=== PATIENT | male | born 1965 | race Caucasian/White ===

== ENCOUNTER → 2016-09-14 | Outpatient (CLI) | payer OTHER | LOC: FIMAGING 08:08 | PROVIDERS: ATTEND Surgery | DX: K44.9 Diaphragmatic hernia without obstruction or gangrene (principal); K21.9 Gastro-esophageal reflux disease without esophagitis; R05 Cough ==

== ENCOUNTER 2016-10-04 05:40 | Inpatient (IN) | payer OTHER ==
[2016-10-04] MEDS ORDERED: CLINDAMYCIN 600 MG/DEXTROSE 50 ML IV ONE (05:46)
[2016-10-04] MEDS ORDERED: LIDOCAINE 1% 2 ML INJ ONE (05:53)
[2016-10-04] MEDS ORDERED: LR 1,000 ML IV ONE (06:27)
[2016-10-04] MEDS ORDERED: LIDOCAINE 1% 2 ML INJ ID PRN (06:27)
--- NOTE | 2016-10-04 06:47 | PDGENHP ---
History and Physical - Chief Complaint GERD - History of Present Illness GERD, cough, hiatal hernia on imaging. History Information - Allergies/Home Medication List Allergies/Adverse Reactions: Penicillins Allergy (Unknown, Verified 10/01/16 13:53) Home Medications: Citalopram [CeleXA] 20 mg PO DAILY 10/01/16 [Last Taken 10/03/16 08:00] Disulfiram [Antabuse 250 MG (*)] 250 mg PO DAILY 10/01/16 [Last Taken 10/03/16 21:00] Multivitamins [Multivitamin (*)] 1 each PO DAILY 10/01/16 [Last Taken 10/01/16] Omeprazole [Prilosec 20 mg] 20 mg PO DAILY 10/01/16 [Last Taken 10/03/16 08:00] I have personally reviewed and updated: family history, medical history - Social History Smoking Status: Current every day smoker Review of Systems ROS: 10pt was reviewed & negative except for what was stated in HPI & below Physical Exam Temp Pulse Resp BP Pulse Ox 36.4 C 58 L 16 137/81 H 94 10/04/16 06:18 10/04/16 06:18 10/04/16 06:18 10/04/16 06:18 10/04/16 06:18 Constitutional: no apparent distress Eyes: PERRL Ears, Nose, Mouth, Throat: moist mucous membranes Cardiovascular: regular rate and rhythym Respiratory: no respiratory distress Gastrointestinal: normoactive bowel sounds, soft, non-tender abdomen Assessment & Plan Assessment: 51c longstanding GERD Plan: to OR for paraesophageal hernia repair, Joya RBA discussed
[2016-10-04] MEDS ORDERED: MIDAZOLAM 2 MG/2 ML VIAL IVP ONE (06:52)
--- NOTE | 2016-10-04 06:52 | PDANEPAE ---
ANE History of Present Illness presents for Joya fundoplication ANE Past Medical History - Cardiovascular History Hx Hypertension: No Hx Arrhythmias: No Hx Chest Pain: No Hx Coronary Artery / Peripheral Vascular Disease: No Hx CHF / Valvular Disease: No Hx Palpitations: No - Pulmonary History Hx COPD: No Hx Asthma/Reactive Airway Disease: No Hx Recent Upper Respiratory Infection: No Hx Oxygen in Use at Home: No - Neurologic History Hx Cerebrovascular Accident: No Hx Seizures: No Hx Dementia: No - Endocrine History Hx Diabetes: No - Renal History Hx Renal Disorders: No - Liver History Hx Hepatic Disorders: No - Neurological & Psychiatric Hx Hx Neurological and Psychiatric Disorders: No - Cancer History Hx Cancer: No - Congenital Disorder History Hx Congenital Disorders: No - GI History Hx Gastrointestinal Disorders: No - Chronic Pain History Chronic Pain: No ANE Review of Systems - Exercise capacity Exercise capacity: >=4 METS METS (RN): 6 METS ANE Patient History - Allergies Allergies/Adverse Reactions: Penicillins Allergy (Unknown, Verified 10/01/16 13:53) - Home Medications Home Medications: Citalopram [CeleXA] 20 mg PO DAILY 10/01/16 [Last Taken 10/03/16 08:00] Disulfiram [Antabuse 250 MG (*)] 250 mg PO DAILY 10/01/16 [Last Taken 10/03/16 21:00] Multivitamins [Multivitamin (*)] 1 each PO DAILY 10/01/16 [Last Taken 10/01/16] Omeprazole [Prilosec 20 mg] 20 mg PO DAILY 10/01/16 [Last Taken 10/03/16 08:00] - NPO status NPO Since - Liquids (Date): 10/03/16 NPO Since - Liquids (Time): 21:30 NPO Since - Solids (Date): 10/03/16 NPO Since - Solids (Time): 20:00 - Anes Hx Anes Hx: no prior problems - Smoking Hx Smoking Status: Current every day smoker ANE Labs/Vital Signs - Vital Signs Blood Pressure: 137/81 Heart Rate: 58 Respiratory Rate: 16 O2 Sat (%): 94 Height: 177.8 cm Weight: 102.058 kg ANE Physical Exam - Airway Neck exam: FROM Mallampati Score: Class 2 Mouth exam: normal dental/mouth exam - Pulmonary Pulmonary: no respiratory distress - Cardiovascular Cardiovascular: regular rate and rhythym - ASA Status ASA Status: III ANE Anesthesia Plan Anesthesia Plan: general endotracheal anesthesia
[2016-10-04] MEDS ORDERED: fentaNYL 100 MCG/2 ML INJ ONE ×4 (06:58→10:12)
[2016-10-04] MEDS ORDERED: PROPOFOL 200 MG/20 ML VIAL ONE ×3 (06:58→09:03)
[2016-10-04] MEDS ORDERED: BUPIVACAINE/EPI 0.25% 30 ML SDV ONE (07:08)
[2016-10-04] MEDS ORDERED: BUPIVACAINE/EPI 0.5% 30 ML SDV ONE (07:08)
[2016-10-04] MEDS ORDERED: hydrALAZINE 20 MG/ML VIAL ONE (09:04)
[2016-10-04] MEDS ORDERED: KETOROLAC 30 MG/1 ML SDV ONE (09:04)
[2016-10-04] MEDS ORDERED: SUGAMMADEX SODIUM 200 MG/2 ML VIAL IVP ONE (09:04)
[2016-10-04] MEDS ORDERED: METOCLOPRAMIDE 10 MG/2 ML VIAL IVP PRN ×2 (10:07→10:14)
[2016-10-04] MEDS ORDERED: ACETAMINOPHEN 500 MG TAB PO PRN (10:07)
[2016-10-04] MEDS ORDERED: PROMETHAZINE HCL 25 MG/ML INJ IVP PRN ×2 (10:07→10:14)
[2016-10-04] MEDS ORDERED: LABETALOL HCL 50 MG/10 ML SYR IVP PRN (10:07)
[2016-10-04] MEDS ORDERED: NALOXONE HCL 0.4 MG/ML INJ IVP PRN (10:07)
[2016-10-04] MEDS ORDERED: ONDANSETRON 4 MG/2 ML VIAL IVP PRN ×2 (10:07→10:14)
[2016-10-04] MEDS ORDERED: LR 500 ML IV PRN (10:07)
[2016-10-04] MEDS ORDERED: OXYCODONE/APAP 5/325 TAB PO PRN (10:07)
[2016-10-04] MEDS ORDERED: ALBUTEROL 3 ML DEYVIAL IH PRN (10:07)
--- NOTE | 2016-10-04 10:07 | POSTANESTH ---
Post Anesthetic Evaluation Cardiovascular Status: Normal, Stable Respiratory Status: Normal, Stable Level of Consciousness/Mental Status: Can Participate in Eval Pain Control: Adequate, Prn Tx Ordered Nausea/Vomiting Control: Adequate, Prn Tx Ordered Complications Possibly Related to Anesthesia: None Noted
[2016-10-04] MEDS: fentaNYL 100 MCG/2 ML INJ IVP PRN ×2 (10:14→10:31)
--- NOTE | 2016-10-04 10:20 | POSTOPPROG ---
Post Op Note Date of Operation: 10/04/16 Surgeon: Westley Almaguer Mother Repairer: Gurpreet Gold MD Anesthesiologist: Barb Anesthesia: GET(General Endotracheal) Pre-op Diagnosis: Paraesophageal hernia, GERD Post-op Diagnosis: same Procedure: Laparoscopic paraesophageal hernia repair with Joya fundoplication Findings: moderate defect, reparied primarily. 360 wrap of 52Fr Bougie Inf/Abcess present in the surg proc area at time of surgery?: No EBL: Minimal
[2016-10-04] MEDS ORDERED: HYDROmorphONE/DILAUDID 1 MG/ML SYR ONE (10:36)
[2016-10-04] MEDS: HYDROmorphONE/DILAUDID 1 MG/ML SYR IVP PRN ×8 (10:39→22:30)
[2016-10-04] MEDS: D5W 1/2 NS W/ 20 KCl/L 1,000 ML IV SCH (11:33)
[2016-10-04] MEDS: KETOROLAC 15 MG/1 ML SDV IVP SCH ×3 (11:33→22:30)
[2016-10-04] MEDS: CEPACOL LOZENGE PO PRN ×2 (17:30→18:30)
[2016-10-04] MEDS ORDERED: NS 250 ML IV ONE (17:30)
--- NOTE | 2016-10-04 20:29 | GOP ---
[f rep st] OPERATIVE REPORT DATE OF OPERATION: 10/04/2016 SURGEON: Westley Almaguer MD ASSISTANT TO THE CEO: Gurpreet Gold MD. ANESTHESIA: General endotracheal ANESTHESIOLOGIST: Dr. Day PREOPERATIVE DIAGNOSIS: Paraesophageal hernia with gastroesophageal reflux. POSTOPERATIVE DIAGNOSIS: Paraesophageal hernia with gastroesophageal reflux. PROCEDURE PERFORMED: 1. Paraesophageal hernia repair. 2. Joya fundoplication. FINDINGS: Large paraesophageal hernia completely reduced. Hiatus reapproximated, 360 degree wrap performed over 52-Mongolian bougie. SPECIMENS: None. ESTIMATED BLOOD LOSS: 10 cc. DESCRIPTION OF PROCEDURE: The patient was greeted in the preoperative suite. Once again, risks, benefits, and alternatives were discussed. Consent was signed. He was then brought back to the operative suite, placed on the OR table in supine position. After all anesthesia machines were on and functioning , [employer] time-out was performed ending with all in agreement. Antibiotics were given on-call to the operating room. After successful induction of general anesthesia, the patient's abdomen was then widely prepped and draped in typical sterile fashion. I entered the abdomen using the Veress needle via a separate stab incision in the left upper quadrant and achieved pneumoperitoneum to 15 mmHg. I inserted a 12 mm port in the left mid abdomen under direct visualization. Once successfully in the abdomen, I placed 4 additional more ports, three 5 mm, one additional 12 mm, all under direct visualization. I turned my attention 1st towards mobilizing the pars flaccida. I took this mobilization all the way up to the right aimee. Once I identified the right aimee, I identified the hernia sac there and dissected it from the right side. I carried my dissection around circumferentially to the anterior and then left side, cleaning all of the diaphragmatic crura from the hernia sac. The hernia sac was still anchored somewhat anteriorly into the chest and via a combination of Harmonic Scalpel and blunt dissection, I was able to successfully reduce this. Once the sac was successfully reduced, I ensured that both crura were successfully skeletonized after which I performed my paraesophageal hernia repair which was performed with multiple interrupted 0 Ethibond sutures noting excellent reapproximation with minimal tension. I could fit the dissector between the esophagus and the crura itself with minimal effort. After this was done, I turned my attention now toward my fundoplication. I divided the majority of the short gastrics along the greater curvature. After this was done, I brought the fundus through my retrogastric window to fashion my wrap. I then had the anesthesiologist insert the 52- Mongolian bougie which was done without incident. Prior to suturing, a shoe-shine maneuver was performed. I then fashioned my wrap around the 52-Mongolian bougie and using multiple interrupted 0 Ethibond sutures reapproximated the Joya floppily around the esophagus incorporating it into the wrap itself. The bougie was then removed. I ensured that the dissector would pass through the wrap without incident and it would. After this was done, I inspected all surfaces which were noted to be hemostatic. All suture lines were noted to be intact. I then irrigated the patient's upper abdomen with normal saline noting that everything was hemostatic. I then injected local anesthesia into all port sites which were withdrawn under direct visualization. I closed my initial port site with an interrupted 0 Vicryl stitch noting excellent fascial reapproximation. The skin was closed with running Monocryl over which Dermabond was placed. The patient was then extubated in the operative suite and taken to the PACU in satisfactory condition. DRAINS: None. COUNTS: All counts were reported as correct x2. /[id number]/MODL MTDD
[2016-10-05] MEDS: D5W 1/2 NS W/ 20 KCl/L 1,000 ML IV SCH ×3 (01:54→17:52)
[2016-10-05] MEDS: HYDROmorphONE/DILAUDID 1 MG/ML SYR IVP PRN ×9 (01:54→22:35)
[2016-10-05 04:42] LABS: HEMATOCRIT 40.8 % (40.0-51.0); HEMOGLOBIN 13.8 g/dL (13.7-17.5); MEAN CELL HEMOGLOBIN 28.3 pg (27.9-34.1); MEAN CELL HEMOGLOBIN CONCENTR. 33.8 g/dL (32.4-36.7); MEAN CELL VOLUME 83.6 fL (81.5-99.8); RED BLOOD CELL COUNT 4.88 10^6/uL (4.40-6.38); RED CELL DISTRIBUTION WIDTH 12.6 % (11.5-15.2)
[2016-10-05 04:54] LABS: ANION GAP 7 mEq/L (8-16); CALCIUM 8.6 mg/dL (8.5-10.4); CARBON DIOXIDE 21 mEq/l (22-31); CHLORIDE 108 mEq/L (97-110); CREATININE 0.9 mg/dL (0.7-1.3); GLOMERULAR FILTRATION RATE > 60; GLUCOSE 139 mg/dL (70-100); POTASSIUM 4.4 mEq/L (3.5-5.2); SODIUM 136 mEq/L (134-144)
[2016-10-05] MEDS: KETOROLAC 15 MG/1 ML SDV IVP SCH ×4 (05:16→23:43)
--- NOTE | 2016-10-05 09:49 | SOAPPROG ---
SOAP Progress Note Assessment/Plan: Assessment/Plan: POD#1 s/p Lap paraesophageal repair c Joya - Pain has been an issues, starting orals today with PO valium. Will reassess later - KEERTHI: CXR shows persistent air in chest, not recurrent hernia. - HDS - Abd soft, aTTP, incisions cdi. Advance diet to fulls, encouraged PO intake - Dispo: encouraged OOB, working on pain control. Likely home tomorrow 10/05/16 09:46 Subjective: Pain issues, no nausea. Clears going ok Objective: Vital Signs Temp Pulse Resp BP Pulse Ox 36.8 C 78 18 111/70 90 L 10/05/16 08:00 10/05/16 08:00 10/05/16 08:00 10/05/16 08:00 10/05/16 08:00 Laboratory Results 10/05/16 04:20 10/05/16 04:20 10/04/16 10/05/16 10/06/16 05:59 05:59 05:59 Intake Total 3178 Output Total 380 Balance 2798 ICD10 Worksheet Patient Problems: Problems Problem Status Onset GERD (gastroesophageal reflux disease) Acute Paraesophageal hernia Acute - ICD10 Problem Qualifiers (1) GERD (gastroesophageal reflux disease) Qualifiers: Esophagitis presence: without esophagitis Qualified Code(s): K21.9 - Gastro -esophageal reflux disease without esophagitis (2) Paraesophageal hernia
[2016-10-05] MEDS: DISULFIRAM 250 MG TAB PO SCH (10:14)
[2016-10-05] MEDS: DIAZEPAM 5 MG TAB PO PRN ×2 (10:14→19:41)
[2016-10-05] MEDS: CITALOPRAM 20 MG TAB PO SCH (10:21)
[2016-10-05] MEDS: PANTOPRAZOLE SODIUM 40 MG TAB PO SCH (12:38)
[2016-10-06] MEDS: HYDROmorphONE/DILAUDID 1 MG/ML SYR IVP PRN ×5 (03:34→19:43)
[2016-10-06] MEDS: CEPACOL LOZENGE PO PRN (04:13)
[2016-10-06] MEDS: DIAZEPAM 5 MG TAB PO PRN (05:38)
[2016-10-06] MEDS: KETOROLAC 15 MG/1 ML SDV IVP SCH ×3 (05:38→18:53)
[2016-10-06] MEDS: OXYCODONE/APAP 5/325 TAB PO PRN ×3 (12:22→21:28)
--- NOTE | 2016-10-06 14:02 | SOAPPROG ---
SOAP Progress Note Assessment/Plan: Assessment/Plan: 51 Y M s/p lap hiatal hernia repair and paraesophageal hernia repair, POD#2. Advance to dysphagia II diet. Buff cap IVF. Start PO pain meds. OOB. S: +flatus. C/o pain--IV meds work, then wear off. No N/V. O: alert, nad mmm chest clear, no wob rrr abd soft, protuberant, +BS, inc cdi 10/06/16 13:59 Objective: Vital Signs Temp Pulse Resp BP Pulse Ox 36.8 C 77 18 142/86 H 95 10/06/16 11:52 10/06/16 11:52 10/06/16 11:52 10/06/16 11:52 10/06/16 11:52 Laboratory Results 10/05/16 04:20 10/05/16 04:20 10/05/16 10/06/16 10/07/16 05:59 05:59 05:59 Intake Total 2867 1923 Output Total 380 Balance [id number] [id number] ICD10 Worksheet Patient Problems: Problems Problem Status Onset GERD (gastroesophageal reflux disease) Acute Paraesophageal hernia Acute
[2016-10-06] MEDS: DISULFIRAM 250 MG TAB PO SCH (17:48)
[2016-10-06] MEDS: CITALOPRAM 20 MG TAB PO SCH (17:48)
[2016-10-06] MEDS: PANTOPRAZOLE SODIUM 40 MG TAB PO SCH (18:00)
[2016-10-07] MEDS: KETOROLAC 15 MG/1 ML SDV IVP SCH ×2 (00:16→06:06)
[2016-10-07] MEDS: HYDROmorphONE/DILAUDID 1 MG/ML SYR IVP PRN (00:17)
[2016-10-07] MEDS: OXYCODONE/APAP 5/325 TAB PO PRN ×2 (04:40→09:33)
[2016-10-07 07:51] VITALS: BP 101/62; PULSE 87; RESP 18; TEMP 97.7; O2SAT 92
[2016-10-07] MEDS: PANTOPRAZOLE SODIUM 40 MG TAB PO SCH (07:55)
[2016-10-07] MEDS: DISULFIRAM 250 MG TAB PO SCH (07:55)
[2016-10-07] MEDS: CITALOPRAM 20 MG TAB PO SCH (07:55)
[2016-10-07] MEDS: DIAZEPAM 5 MG TAB PO PRN (08:02)
--- NOTE | 2016-10-07 16:11 | PDDCSUM ---
Discharge Summary Discharge Summary: DISCHARGE SUMMARY Date of Admission: 10/04 Date of Discharge: 10/07 DISCHARGE DIAGNOSES - paraesophageal hernia - chronic gastroesophageal reflux disease HOSPITAL COURSE The patient was admitted on the above date for her elective procedure. His surgery had no intraoperative complications. They were subsequently taken to the PACU and then the general medical floor. The hospital course was uneventful , their diet was advanced to a soft diet which was well tolerated and their pain was well controlled. They were discharged home in stable condition on October 07, 2016 DISCHARGE MEDICATIONS All home medications restarted, only new medications were Percocet and Zofran ODT DISPOSITION Home FOLLOW UP Follow up with me in the office in 10-14 days for a general post-operative visit
== END 2016-10-07 10:11 | disposition home or self-care (01) | DRG 328 ==
LOC: OBSVTOIN 05:40 → F3N 05:40 → F3E 11:23
PROVIDERS: ADMIT Surgery; ATTEND Surgery
DX: K44.9 Diaphragmatic hernia without obstruction or gangrene (principal); K21.9 Gastro-esophageal reflux disease without esophagitis; Z72.0 Tobacco use
CPT/HCPCS: J0360; J1170; J1885; J2250; J2405; J2550; J2704; J3010

== ENCOUNTER 2018-01-25 10:01 | Emergency (ER) | payer OTHER ==
[2018-01-25 10:25] LABS: PLATELET COUNT 357 10^3/uL (150-400)
[2018-01-25] MEDS ORDERED: LORazepam 2 MG/ML INJ IVP ONE (10:43)
--- NOTE | 2018-01-25 10:48 | EDPHY ---
H & P Stated Complaint: SOB CP L arm tingling dizzy since last night Time Seen by Provider: 01/25/18 10:17 HPI/ROS: CHIEF COMPLAINT: Dizziness, shortness of breath HISTORY OF PRESENT ILLNESS: 52-year-old male presents with dizziness and shortness of breath. He was driving in his car and talking to his son on the telephone. He developed sudden onset of dizziness, like he might faint and shortness of breath. Associated with severe anxiety, tingling in his hands and carpopedal spasm. He then developed pain down the left arm. History of anxiety and depression, not currently taking medications. No prior history of panic attack. Cardiac risk factors negative. Nonsmoker; no family history; no hypertension, diabetes or hypercholesterolemia. REVIEW OF SYSTEMS: complete 10 point ROS reviewed and is negative except for the noted elements in the HPI - Medical/Surgical History Hx Asthma: No Hx Chronic Respiratory Disease: No Hx Diabetes: No Hx Cardiac Disease: No Hx Renal Disease: No Hx Cirrhosis: No Hx Alcoholism: No Hx HIV/AIDS: No Hx Splenectomy or Spleen Trauma: No Other PMH: recovered ETOH. htn - Social History Smoking Status: Current every day smoker Alcohol Use: Sober Drug Use: Marijuana - Physical Exam Exam: General Appearance: Alert, anxious, pleasant Eyes: Pupils equal and round, no conjunctival pallor or injection ENT, Mouth: Mucous membranes moist Neck: Normal inspection Respiratory: Lungs are clear to auscultation Cardiovascular: Regular rate and rhythm Gastrointestinal: Abdomen is soft and nontender Neurological: A&O, nonfocal, normal gait Skin: Warm and dry, no rash Extremities: Nontender, no pedal edema Psychiatric: anxious Constitutional: Initial Vital Signs Temperature (C) 37.0 C 01/25/18 10:03 Heart Rate 67 01/25/18 10:03 Respiratory Rate 22 H 01/25/18 10:03 Blood Pressure 143/69 H 01/25/18 10:03 O2 Sat (%) 100 01/25/18 10:03 O2 Delivery Mode Room Air Allergies/Adverse Reactions: Penicillins Allergy (Unknown, Verified 10/01/16 13:53) Home Medications: Medication Instructions Recorded NK [No Known Home Meds] 01/25/18 Medical Decision Making - Diagnostics EKG Interpretation: EKG interpreted by me reveals normal sinus rhythm, rate 60, no ST or T segment changes. Interpretation: Normal EKG. Imaging Results: Imaging Impressions Chest X-Ray 01/25/18 10:15 Impression: 1. No active cardiopulmonary disease seen. 2. Moderate to large hiatal hernia once again noted. ED Course/Re-evaluation: This patient presents with a likely panic attack. Stat EKG reveals no evidence of ischemia or dysrhythmia and I do not suspect acute coronary syndrome in this patient. He is very anxious on my initial exam and I tried to reassure him. Ativan 0.5 mg IV given. 1130: feels much better, dizziness resolved. Will ambulate. Labs reviewed, calcium minimally elevated, doubt this is of clinical significance. d/w pt, encouraged him to f/u PCP, have labs rechecked. Differential Diagnosis: Differential diagnosis includes though is not limited to cardiac dysrhythmia, CVA, TIA, GI bleed, sepsis, hypoglycemia, electrolyte abnormality. - Data Points Laboratory Results: Laboratory Results 01/25/18 10:00 01/25/18 10:00 01/25/18 01/25/18 01/25/18 10:18 10:00 10:00 WBC RBC Hgb Hct MCV MCH MCHC RDW Plt Count MPV Neut % (Auto) Lymph % (Auto) Coles % (Auto) Eos % (Auto) Baso % (Auto) Nucleat RBC Rel Count Absolute Neuts (auto) Absolute Lymphs (auto) Absolute Monos (auto) Absolute Eos (auto) Absolute Basos (auto) Absolute Nucleated RBC Immature Gran % Immature Gran # D-Dimer < 0.27 ug/mLFEU ug/mLFEU (0.00-0.50) Sodium 142 mEq/L mEq/L (135-145) Potassium 3.7 mEq/L mEq/L (3.3-5.0) Chloride 104 mEq/L mEq/L (97-110) Carbon Dioxide 22 mEq/l mEq/l (22-31) Anion Gap 16 mEq/L H mEq/L (6-14) BUN 11 mg/dL mg/dL (7-23) Creatinine 1.1 mg/dL mg/dL (0.7-1.3) Estimated GFR > 60 Glucose 105 mg/dL H mg/dL (70-100) Calcium 10.8 mg/dL H mg/dL (8.5-10.4) Phosphorus 1.7 mg/dL L mg/dL (2.5-4.5) POC Troponin I 0.01 ng/mL ng/mL (0.00-0.08) NT-Pro-B Natriuret Pep 17 pg/mL pg/mL (0-125) 01/25/18 10:00 WBC 12.48 10^3/uL H 10^3/uL (3.80-9.50) RBC 6.18 10^6/uL 10^6/uL (4.40-6.38) Hgb 17.8 g/dL H g/dL (13.7-17.5) Hct 50.7 % % (40.0-51.0) MCV 82.0 fL fL (81.5-99.8) MCH 28.8 pg pg (27.9-34.1) MCHC 35.1 g/dL g/dL (32.4-36.7) RDW 12.6 % % (11.5-15.2) Plt Count 357 10^3/uL 10^3/uL (150-400) MPV 9.9 fL fL (8.7-11.7) Neut % (Auto) 72.9 % % (39.3-74.2) Lymph % (Auto) 19.2 % % (15.0-45.0) Coles % (Auto) 5.6 % % (4.5-13.0) Eos % (Auto) 1.5 % % (0.6-7.6) Baso % (Auto) 0.6 % % (0.3-1.7) Nucleat RBC Rel Count 0.0 % % (0.0-0.2) Absolute Neuts (auto) 9.10 10^3/uL H 10^3/uL (1.70-6.50) Absolute Lymphs (auto) 2.39 10^3/uL 10^3/uL (1.00-3.00) Absolute Monos (auto) 0.70 10^3/uL 10^3/uL (0.30-0.80) Absolute Eos (auto) 0.19 10^3/uL 10^3/uL (0.03-0.40) Absolute Basos (auto) 0.07 10^3/uL 10^3/uL (0.02-0.10) Absolute Nucleated RBC 0.00 10^3/uL 10^3/uL (0-0.01) Immature Gran % 0.2 % % (0.0-1.1) Immature Gran # 0.03 10^3/uL 10^3/uL (0.00-0.10) D-Dimer Sodium Potassium Chloride Carbon Dioxide Anion Gap BUN Creatinine Estimated GFR Glucose Calcium Phosphorus POC Troponin I NT-Pro-B Natriuret Pep Medications Given: Discontinued Medications Lorazepam (Ativan Injection) 0.5 mg IVP EDNOW ONE Stop: 01/25/18 10:44 Last Admin: 01/25/18 11:15 Dose: 0.5 mg Point of Care Test Results: Chemistry 01/25/18 10:18 POC Troponin I 0.01 ng/mL ng/mL (0.00-0.08) Departure - Departure Disposition: Home, Routine, Self-Care Clinical Impression: Panic attack Condition: Good Instructions: Panic Attack (ED) Referrals: Jonas Steel MD [Medical Doctor] - As per Instructions
--- NOTE | 2018-01-25 11:17 | CPEKG ---
Test Reason : OPEN Blood Pressure : / mmHG Vent. Rate : 060 BPM Atrial Rate : 061 BPM P-R Int : 167 ms QRS Dur : 097 ms QT Int : 400 ms P-R-T Axes : 021 -65 004 degrees QTc Int : 400 ms Normal sinus rhythm Consider right ventricular hypertrophy significant artifact Confirmed by Shiloh Burciaga ([id number]) on 01/25/2018 11:17:08 AM Referred By: Confirmed By:Shiloh Burciaga
[2018-01-25 12:25] VITALS: BP 136/84
== END 2018-01-25 12:25 | disposition home or self-care (01) ==
DX: F41.0 Panic disorder [episodic paroxysmal anxiety] (principal); F17.200 Nicotine dependence, unspecified, uncomplicated
CPT/HCPCS: 84484-PO; 96374; J2060